=== PATIENT | female | born 1990 | race Caucasian/White ===

== ENCOUNTER 2016-06-08 11:23 | Emergency (ER) | payer OTHER ==
[~2016-06-08] VITALS: Ht 160 cm; Wt 113.4 kg
[~2016-06-08 11:23] MED LIST: ADVIL200 MG PO; BENTYL20 MG PO; BUTALB-APAP-CA1 EACH PO; CLARITIN,ALAVAR10 MG PO; ENDOCET 5-3251 EACH PO; IBUPROFEN800 MG PO; KEPPRA750 MG PO; LAMICTAL100 MG PO; LAMICTAL200 MG PO; Motrin PO; OXCARBAZEPINE300 MG PO; PAXIL10 MG PO; TRILEPTAL; TRILEPTAL300 MG PO
[2016-06-08] MEDS ORDERED: APTIOM400 MG PO (13:15)
[2016-06-08] MEDS ORDERED: LAMICTAL25 MG PO (13:15)
[2016-06-08] MEDS ORDERED: APTIOM800 MG PO (13:15)
[2016-06-08] MEDS ORDERED: LEVETIRACETAM1000 MG PO (13:16)
[2016-06-08] MEDS ORDERED: LAMOTRIGINE200 MG PO (13:17)
[2016-06-08] MEDS ORDERED: TRAMADOL HCL50 MG PO (14:59)
[2016-06-08] MEDS ORDERED: CLINDAMYCIN HC150 MG PO (14:59)
[2016-06-08 15:13] VITALS: BP 134/92
== END 2016-06-08 15:14 | disposition home or self-care (01) ==
LOC: RME 11:23 → EME 11:23 → RME 15:14
DX: K04.7 Periapical abscess without sinus (principal)
CPT/HCPCS: 99281; 99284